=== PATIENT | male | born 1940 | race Hispanic/Latino ===

== ENCOUNTER 2021-05-30 16:38 | Emergency (ER) | payer OTHER ==
--- OUTSIDE RECORDS SUMMARY | 2021-05-30 16:41 | XMS REPORT | Continuity of Care Document ---
:1940 Author Organization [facility] t Address [address] [place] [address] Dr. Herrera [address] [place] [id number] Care Team Providers Name Role Phone Unavailable Unavailable Unavailable Payers Payer Name Policy Type Policy Number Effective Date Expiration Date S [facility] [id number] 2021 (MEDICARE 00:00:00 REPLACEMENT HMO) Problems This patient has no known problems. Allergies, Adverse Reactions, Alerts This patient has no known allergies or adverse reactions. Medications This patient has no known medications. Procedures This patient has no known procedures. Encounters Start End Encounter Admission Attending Care Care Encounter Source Date/Time Date/Time Type Type Clinicians Facility Department ID 2021-01-24 2021-01-24 Outpatient [facility] [id number] [facility] 11:01:00 11:01:00 1029 [facility] Results This patient has no known results.
[2021-05-30] MEDS ORDERED: NA CHLORIDE 0.9% 500 ML ONE (17:32)
[2021-05-30] MEDS ORDERED: CEFTRIAXONE 1000 MG/VIAL ONE (17:32)
[2021-05-30] MEDS ORDERED: NA CHLORIDE 0.9% 1,000 ML ONE (17:32)
[2021-05-30 17:51] LABS: Urine Blood Negative (Negative); Urine Glucose 3+ (Negative); Urine Protein Negative (Negative); Urine Specific Gravity 1.015 (1.005-1.030)
[2021-05-30 17:55] LABS: Absolute Lymphocytes (CBC) 1.1 K/uL (0.7-4.9); Hematocrit 42.3 % (39.6-49.0); Lymphocytes % 17.6 % (15.3-44.8); MPV 9.5 fL (7.6-11.3); Protime INR 1.02; RBC Red Blood Cell Count 4.57 M/uL (4.33-5.43)
[2021-05-30 18:14] LABS: Albumin 3.7 g/dL (3.4-5.0); Bilirubin Direct 0.1 mg/dL (0-0.2); Bilirubin Total 0.5 mg/dL (0.2-1.0); Magnesium 2.2 mg/dL (1.8-2.4); Potassium 3.8 mmol/L (3.5-5.1); Protein, Total 7.8 g/dL (6.4-8.2)
--- NOTE | 2021-05-30 18:29 | RAD REPORT ---
EXAM DESCRIPTION: Emil Single View05/30/2021 5:49 pm CLINICAL HISTORY: cough COMPARISON: 2017 FINDINGS: The lungs appear clear of acute infiltrate. The heart is normal size IMPRESSION: No acute abnormalities displayed
--- NOTE | 2021-05-30 18:56 | ER ---
Nurse's Notes [facility] Name: Ciaran Peters Age: 81 yrs Sex: Male : 1940 Arrival Date: 05/30/2021 Time: 16:40 Bed 26 Private MD: Diagnosis: Weakness;Anorexia;Abnormal weight loss Presentation: 05/30 17:01 Chief complaint: Patient states: Generalized weakness, sore legs, weight loss of 25lbs ww but unsure over what amount of time. Coronavirus screen: Vaccine status: Patient reports receiving the 2nd dose of the covid vaccine. Client denies travel out of the [place] in the last 14 days. Ebola Screen: Patient denies travel to an Ebola-affected area in the 21 days before illness onset. Initial Sepsis Screen: Does the patient meet any 2 criteria? No. Patient's initial sepsis screen is negative. Does the patient have a suspected source of infection? No. Patient's initial sepsis screen is negative. Risk Assessment: Do you want to hurt yourself or someone else? Patient reports no desire to harm self or others. Onset of symptoms is unknown. 17:01 Method Of Arrival: Ambulatory ww 17:01 Acuity: AYDEN 3 ww Triage Assessment: 17:02 General: Appears in no apparent distress. comfortable, Behavior is cooperative. Pain: ww Denies pain. Neuro: Level of Consciousness is awake, alert, obeys commands, Oriented to person, place, time, situation, Speech is normal. Cardiovascular: Capillary refill < 3 seconds. Respiratory: Airway is patent Respiratory effort is even, unlabored, Respiratory pattern is regular, symmetrical. GI: No signs and/or symptoms were reported involving the gastrointestinal system. : No signs and/or symptoms were reported regarding the genitourinary system. Historical: - Allergies: 17:02 No Known Allergies; ww - PMHx: 17:02 Diabetes mellitus; Dementia; ww - PSHx: 17:02 None; ww - Immunization history:: Adult Immunizations up to date. - Social history:: Smoking status: Patient denies any tobacco usage or history of. Screenin:54 Abuse screen: Denies threats or abuse. Denies injuries from another. Nutritional dubois screening: Had unintentional weight loss of 10 pounds or more. Tuberculosis screening: No symptoms or risk factors identified. Fall Risk IV access (20 points). Assessment: 17:54 General: Appears in no apparent distress. Behavior is calm, cooperative. Pain: Denies dubois pain. Cardiovascular: Reports fatigue. GI: Reports intolerance of food. Musculoskeletal: Reports weakness in right arm, left arm, right leg and left leg. Vital Signs: 17:01 BP 129 / 70; Pulse 84; Resp 18; Pulse Ox 100% on R/A; Weight 63.5 kg; Height 5 ft. 9 ww in. (175.26 cm); Pain 0/10; 17:01 Body Mass Index 20.67 (63.50 kg, 175.26 cm) ww ED Course: 16:40 Patient arrived in ED. as 17:02 Triage completed. ww 17:02 Arm band placed on left wrist. Patient placed in an exam room, on a stretcher. ww 17:20 Adria Trujillo MD is Attending Physician. enrrique 17:49 XRAY Chest (1 view) In Process Unspecified. EDMS 17:51 Urine Culture Sent. dubois 17:51 Procalcitonin Sent. dubois 17:51 Blood Culture Adult (2) Sent. dubois 17:51 Lactate Sent. dubois 17:51 Lipase Sent. dubois 17:51 Basic Metabolic Panel Sent. dubois 17:51 CBC with Diff Sent. dubois 17:51 LFT's Sent. dubois 17:53 Magnesium Sent. dubois 17:54 Patient has correct armband on for positive identification. Bed in low position. Side dubois rails up X 1. 17:54 No provider procedures requiring assistance completed. Inserted saline lock: 20 gauge dubois in left antecubital area, using aseptic technique. 18:54 Dennis Florian MD is Referral Physician. enrrique 19:10 IV discontinued, intact, Pressure dressing applied. dubois Administered Medications: 17:50 Drug: NS 0.9% 1000 ml Route: IV; Rate: 125 ml/hr; Site: left antecubital; dubois 17:51 Drug: NS 0.9% 500 ml Route: IV; Rate: bolus; Site: left antecubital; dubois 17:51 Drug: Rocephin (cefTRIAXone) 1 grams Route: IV; Rate: per protocol; Site: left dubois antecubital; Outcome: 18:55 Discharge ordered by . enrrique 18:57 Patient left the ED. iw 19:10 Discharged to home dubois 19:10 Condition: good 19:10 Discharge instructions given to patient. 19:10 Patient left the ED. dubois Signatures: Dispatcher [employer] Adria Parry MD MD cha Martinez, Amelia as Williams, Irene, RN RN iw Wood, Whitney, RN RN ww Au-Stager, Heather, RN RN ha
--- NOTE | 2021-05-30 18:56 | EDPHYS ---
Physician Documentation [facility] Name: Ciaran Peters Age: 81 yrs Sex: Male : 1940 Arrival Date: 05/30/2021 Time: 16:40 Bed 26 Private MD: ED Physician Adria Trujillo HPI: 05/30 18:42 This 81 yrs old Male presents to ER via Ambulatory with complaints of enrrique Weakness, weight loss. 18:42 The patient presents to the emergency department with weakness of the entire body, enrrique generalized weakness. Onset: The symptoms/episode began/occurred 15 day(s) ago. Context: occurred. Historical: - Allergies: 17:02 No Known Allergies; ww - PMHx: 17:02 Diabetes mellitus; Dementia; ww - PSHx: 17:02 None; ww - Immunization history:: Adult Immunizations up to date. - Social history:: Smoking status: Patient denies any tobacco usage or history of. ROS: 18:45 Constitutional: Negative for fever, chills, and weight loss, Eyes: Negative for injury, enrrique pain, redness, and discharge, ENT: Negative for injury, pain, and discharge, Neck: Negative for injury, pain, and swelling, Cardiovascular: Negative for chest pain, palpitations, and edema, Respiratory: Negative for shortness of breath, cough, wheezing, and pleuritic chest pain, Abdomen/GI: Negative for abdominal pain, nausea, vomiting, diarrhea, and constipation, Back: Negative for injury and pain, : Negative for injury, bleeding, discharge, and swelling, MS/Extremity: Negative for injury and deformity, Skin: Negative for injury, rash, and discoloration, Neuro: Negative for headache, weakness, numbness, tingling, and seizure, Psych: Negative for depression, anxiety, suicide ideation, homicidal ideation, and hallucinations, Allergy/Immunology: Negative for hives, rash, and allergies, Endocrine: Negative for neck swelling, polydipsia, polyuria, polyphagia, and marked weight changes, Hematologic/Lymphatic: Negative for swollen nodes, abnormal bleeding, and unusual bruising. Exam: 18:45 Constitutional: This is a well developed, well nourished patient who is awake, alert, enrrique and in no acute distress. Head/Face: Normocephalic, atraumatic. Eyes: Pupils equal round and reactive to light, extra-ocular motions intact. Lids and lashes normal. Conjunctiva and sclera are non-icteric and not injected. Cornea within normal limits. Periorbital areas with no swelling, redness, or edema. ENT: Nares patent. No nasal discharge, no septal abnormalities noted. Tympanic membranes are normal and external auditory canals are clear. Oropharynx with no redness, swelling, or masses, exudates, or evidence of obstruction, uvula midline. Mucous membranes moist. Neck: Trachea midline, no thyromegaly or masses palpated, and no cervical lymphadenopathy. Supple, full range of motion without nuchal rigidity, or vertebral point tenderness. No Meningismus. Chest/axilla: Normal chest wall appearance and motion. Nontender with no deformity. No lesions are appreciated. Cardiovascular: Regular rate and rhythm with a normal S1 and S2. No gallops, murmurs, or rubs. Normal PMI, no JVD. No pulse deficits. Respiratory: Lungs have equal breath sounds bilaterally, clear to auscultation and percussion. No rales, rhonchi or wheezes noted. No increased work of breathing, no retractions or nasal flaring. Abdomen/GI: Soft, non-tender, with normal bowel sounds. No distension or tympany. No guarding or rebound. No evidence of tenderness throughout. Back: No spinal tenderness. No costovertebral tenderness. Full range of motion. Male : Normal genitalia with no discharge or lesions. Skin: Warm, dry with normal turgor. Normal color with no rashes, no lesions, and no evidence of cellulitis. MS/ Extremity: Pulses equal, no cyanosis. Neurovascular intact. Full, normal range of motion. Neuro: Awake and alert, GCS 15, oriented to person, place, time, and situation. Cranial nerves II-XII grossly intact. Motor strength 5/5 in all extremities. Sensory grossly intact. Cerebellar exam normal. Normal gait. Psych: Awake, alert, with orientation to person, place and time. Behavior, mood, and affect are within normal limits. 18:53 Abdomen/GI: Inspection: abdomen appears normal, Bowel sounds: normal, Palpation: [facility] abdomen is soft and non-tender, Liver: no appreciated palpable abnormalities, Hernia: not appreciated. 19:00 ECG was reviewed by the Attending Physician. [facility] Vital Signs: 17:01 BP 129 / 70; Pulse 84; Resp 18; Pulse Ox 100% on R/A; Weight 63.5 kg; Height 5 ft. 9 ww in. (175.26 cm); Pain 0/10; 17:01 Body Mass Index 20.67 (63.50 kg, 175.26 cm) MDM: 17:20 Patient medically screened. enrrique 18:59 Data reviewed: vital signs, nurses notes, lab test result(s), EKG, radiologic studies, enrrique plain films. Data interpreted: laboratory monitor: not applicable for this patient encounter. rate is 84 beats/min, rhythm is regular, Pulse oximetry: on room air is 100 %. Test interpretation: by ED physician or midlevel provider: ECG, plain radiologic studies. Counseling: I had a detailed discussion with the patient and/or guardian regarding: the historical points, exam findings, and any diagnostic results supporting the discharge/admit diagnosis, lab results, radiology results, the need for outpatient follow up, for definitive care, a family practitioner, a head of transport logistics. 05/30 17:25 Order name: Basic Metabolic Panel [facility] 05/30 17:25 Order name: CBC with Diff [facility] 05/30 17:25 Order name: LFT's [facility] 05/30 17:25 Order name: Magnesium; Complete Time: 18:33 [facility] 05/30 17:25 Order name: NT PRO-BNP; Complete Time: 18:33 [facility] 05/30 17:25 Order name: PT-INR; Complete Time: 18:33 [facility] 05/30 17:25 Order name: Troponin HS; Complete Time: 18:33 [facility] 05/30 17:25 Order name: Lipase; Complete Time: 18:33 [facility] 05/30 17:25 Order name: Lactate; Complete Time: 18:33 [facility] 05/30 17:25 Order name: Blood Culture Adult (2) [facility] 05/30 17:25 Order name: Procalcitonin; Complete Time: 18:33 [facility] 05/30 17:25 Order name: Urine Culture [facility] 05/30 17:25 Order name: Basic Metabolic Panel; Complete Time: 18:33 EDOR 05/30 17:26 Order name: CBC with Automated Diff; Complete Time: 18:11 EDOR 05/30 17:25 Order name: XRAY Chest (1 view); Complete Time: 18:33 [facility] 05/30 17:25 Order name: EKG; Complete Time: 17:26 enrrique 05/30 17:25 Order name: Cardiac monitoring; Complete Time: 17:51 enrrique 05/30 17:25 Order name: EKG - Nurse/Tech; Complete Time: 18:28 enrrique 05/30 17:25 Order name: IV Saline Lock; Complete Time: 17:51 05/30 17:25 Order name: Labs collected and sent; Complete Time: 17:52 enrrique 05/30 17:25 Order name: O2 Per Protocol; Complete Time: 17:52 enrrique 05/30 17:25 Order name: O2 Sat Monitoring; Complete Time: 17:52 enrrique 05/30 17:25 Order name: Urine Dipstick-Ancillary (obtain specimen); Complete Time: 17:51 enrrique 05/30 17:26 Order name: Liver (Hepatic) Function; Complete Time: 18:33 EDMS 05/30 17:51 Order name: Urine Dipstick-Ancillary; Complete Time: 18:33 EDMS EC:00 Rate is 63 beats/min. Rhythm is regular. QRS [place] is Normal. [place] interval is normal. QRS enrrique interval is normal. QT interval is normal. No Q waves. T waves are Normal. No ST changes noted. Clinical impression: Normal ECG and No evidence of ischemia. Interpreted by me. Reviewed by me. Administered Medications: 17:50 Drug: NS 0.9% 1000 ml Route: IV; Rate: 125 ml/hr; Site: left antecubital; 17:51 Drug: NS 0.9% 500 ml Route: IV; Rate: bolus; Site: left antecubital; 17:51 Drug: Rocephin (cefTRIAXone) 1 grams Route: IV; Rate: per protocol; Site: left antecubital; Disposition Summary: 05/30/21 18:55 Discharge Ordered Location: Home enrrique Problem: new enrrique Symptoms: have improved enrrique Condition: Stable enrrique Diagnosis - Weakness enrrique - Anorexia enrrique - Abnormal weight loss enrrique Followup: enrrique - With: Private Physician - When: 2 - 3 days - Reason: Recheck today's complaints, Continuance of care, Re-evaluation by your physician Followup: enrrique - With: Dennis Florian MD - When: 2 - 3 days - Reason: Recheck today's complaints, Re-evaluation by your physician Discharge Instructions: - Discharge Summary Sheet enrrique - Weakness enrrique - Fatigue enrrique - Weakness, [id number] enrrique - Type 2 Diabetes Mellitus, Diagnosis, Adult, [id number] enrrique - Deconditioning enrrique Forms: - Medication Reconciliation Form enrrique - Thank You Letter enrrique - Antibiotic Education enrrique - Prescription Opioid Use enrrique Signatures: Dispatcher [employer] EDAdria Culp MD MD cha Attema, Lee, RED HAT LINUX ENGINEER-C [employer] HAT LINUX ENGINEER-Cla1 Xiomara Campbell, RN RN ww Cristina Mcintyre RN RN dubois
[2021-05-30 19:25] VITALS: BP 129/70; O2SAT 100
== END 2021-05-30 19:10 | disposition home or self-care (01) ==
LOC: ER 16:38
DX: R63.0 Anorexia (principal); R63.4 Abnormal weight loss; E11.9 Type 2 diabetes mellitus without complications; F03.90 Unspecified dementia, unspecified severity, without behavioral disturbance, psychotic disturbance, mood disturbance, and anxiety
CPT/HCPCS: 93005; 87040 ×2; 87088; 85025; 87086; 80048; 36415; 83735; 85610; 80076; 83605; 81003; 84484; 83690; 84145; 83880; 71045; 96374; 99284; J7040; J7030

== ENCOUNTER 2021-10-28 12:44 | Emergency (ER) | payer OTHER ==
--- OUTSIDE RECORDS SUMMARY | 2021-10-28 12:46 | XMS REPORT | Continuity of Care Document ---
:1940 Author Organization [facility] t Address [address] [place] [address] Care Team Providers Name Role Phone Gino Walton Attending Clinician Unavailable Bryn Bragg Attending Clinician Unavailable Payers Payer Name Policy Type Policy Number Effective Date Expiration Date S [facility] [id number] 2021 (MEDICARE 00:00:00 REPLACEMENT HMO) Problems This patient has no known problems. Allergies, Adverse Reactions, Alerts This patient has no known allergies or adverse reactions. Medications This patient has no known medications. Procedures This patient has no known procedures. Encounters Start End Encounter Admission Attending Care Care Encounter Source Date/Time Date/Time Type Type Clinicians Facility Department ID 2021-08-20 Outpatient Walton, [facility] [id number] Common 09:21:03 Avnee [facility] 2021-08-14 Outpatient Walton, [facility] [id number] Common 12:47:01 Avnee [facility] 2021-07-24 Outpatient Walton, [facility] [id number] Common 09:27:03 Avnee [facility] 2021-07-23 Outpatient Anton, [facility] [id number] Common 11:07:05 Avnee [facility] 2021-07-17 Outpatient RITA Bragg [facility] [id number] Common 08:39:06 [facility] 2021-01-24 2021-01-24 Outpatient DMG DMG [id number] [facility] 11:01:00 11:01:00 1029 [facility] Results This patient has no known results.
--- NOTE | 2021-10-28 14:09 | RAD REPORT ---
EXAM DESCRIPTION: RAD - Chest Single View - 10/28/2021 1:56 pm CLINICAL HISTORY: sadf Chest pain. COMPARISON: Chest Single View dated 05/30/2021; Chest Pa And Lat (2 Views) dated 04/19/2017; Chest Pa A nd Lat (2 Views) dated 01/25/2017 FINDINGS: Portable technique limits examination quality. The lungs are grossly clear. The heart is normal in size. No displaced fractures. IMPRESSION: No acute intrathoracic process suspected.
[2021-10-28 15:35] VITALS: BP 136/86; TEMP 97; O2SAT 99
--- NOTE | 2021-10-29 10:13 | EDPHYS ---
Physician Documentation [facility] Name: Ciaran Peters Age: 81 yrs Sex: Male : 1940 Arrival Date: 10/28/2021 Time: 12:49 Bed DIS2 Private MD: ED Physician Adria Trujillo HPI: 10/28 14:23 This 81 yrs old Male presents to ER via Ambulatory with complaints of General jl9 Weakness, bodyaches. 14:23 Onset: The symptoms/episode began/occurred 1 month(s) ago. Associated signs and jl9 symptoms: Pertinent positives: Weakness., Pertinent negatives:. Modifying factors: The patient symptoms are alleviated by nothing, the patient symptoms are aggravated by nothing. The patient has experienced a previous episode, Patient has upcoming hematology appointment. . The patient has been recently seen by a physician:. Historical: - Allergies: 13:02 No Known Allergies; eh3 - Home Meds: 13:02 Flonase 50 mcg/actuation Nasal spsn 1 spray once daily [Active]; eh3 - PMHx: 13:02 Dementia; diabetes mellitus; eh3 - PSHx: 13:02 None; eh3 - Immunization history:: Adult Immunizations up to date. - Social history:: Smoking status: Patient denies any tobacco usage or history of. Patient/guardian denies using alcohol. ROS: 14:24 Eyes: Negative for injury, pain, redness, and discharge, ENT: Negative for injury, jl9 pain, and discharge, Neck: Negative for injury, pain, and swelling, Cardiovascular: Negative for chest pain, palpitations, and edema, Respiratory: Negative for shortness of breath, cough, wheezing, and pleuritic chest pain, Abdomen/GI: Negative for abdominal pain, nausea, vomiting, diarrhea, and constipation, Back: Negative for injury and pain, MS/Extremity: Negative for injury and deformity, Skin: Negative for injury, rash, and discoloration, Neuro: Negative for headache, weakness, numbness, tingling, and seizure, Psych: Negative for depression, anxiety, suicide ideation, homicidal ideation, and hallucinations, Allergy/Immunology: Negative for hives, rash, and allergies, Endocrine: Negative for neck swelling, polydipsia, polyuria, polyphagia, and marked weight changes, Hematologic/Lymphatic: Negative for swollen nodes, abnormal bleeding, and unusual bruising. 14:24 Constitutional: Positive for malaise. Exam: 14:25 Constitutional: This is a well developed, well nourished patient who is awake, alert, jl9 and in no acute distress. Head/Face: Normocephalic, atraumatic. Eyes: Pupils equal round and reactive to light, extra-ocular motions intact. Lids and lashes normal. Conjunctiva and sclera are non-icteric and not injected. Cornea within normal limits. Periorbital areas with no swelling, redness, or edema. ENT: Mucous membranes moist. Neck: Trachea midline, no thyromegaly or masses palpated, and no cervical lymphadenopathy. Supple, full range of motion without nuchal rigidity, or vertebral point tenderness. No Meningismus. Chest/axilla: Normal chest wall appearance and motion. Nontender with no deformity. No lesions are appreciated. Cardiovascular: Regular rate and rhythm with a normal S1 and S2. No gallops, murmurs, or rubs. Normal PMI, no JVD. No pulse deficits. Abdomen/GI: Soft, non-tender, with normal bowel sounds. No distension or tympany. No guarding or rebound. No evidence of tenderness throughout. Back: No spinal tenderness. No costovertebral tenderness. Full range of motion. Skin: Warm, dry with normal turgor. Normal color with no rashes, no lesions, and no evidence of cellulitis. MS/ Extremity: Pulses equal, no cyanosis. Neurovascular intact. Full, normal range of motion. Neuro: Awake and alert, GCS 15, oriented to person, place, time, and situation. Cranial nerves II-XII grossly intact. Motor strength 5/5 in all extremities. Sensory grossly intact. Cerebellar exam normal. Normal gait. Psych: Awake, alert, with orientation to person, place and time. Behavior, mood, and affect are within normal limits. Vital Signs: 12:56 BP 136 / 86 RA Sitting (auto/reg); Pulse 76; Resp 18; Temp 97.0(TE); Pulse Ox 99% on eh3 R/A; Weight 65.77 kg; Height 5 ft. 9 in. (175.26 cm); Pain 0/10; 12:56 Body Mass Index 21.41 (65.77 kg, 175.26 cm) 3 MDM: 13:16 Patient medically screened. jl9 14:28 Data reviewed: vital signs, nurses notes. jl9 14:28 Special discussion: Patient declines any blood work and states that while in the ED, he jl9 received a call from his PCP and he has a registration representative appointment. Patient states he has been seeking answers for his generalized weakness. He would like to be discharged and follow up with hematology. . 10/28 13:30 Order name: XRAY Chest (1 view); Complete Time: 14:27 jl9 10/28 13:30 Order name: COVID,FLU,RSV CPL (Document "Date of Onset" if Symptomatic) jl9 10/28 13:30 Order name: Urine Dipstick-Ancillary (obtain specimen) jl9 10/28 13:31 Order name: IV Saline Lock - Large Bore jl9 Administered Medications: No medications were administered Disposition Summary: 10/28/21 14:26 Discharge Ordered Location: Home jl9 Problem: an ongoing problem jl9 Symptoms: are unchanged jl9 Condition: Stable jl9 Diagnosis - Muscle weakness (generalized) jl9 Followup: jl9 - With: Private Physician - When: 1 - 2 days - Reason: Recheck today's complaints, Continuance of care, Re-evaluation by your physician Discharge Instructions: - Discharge Summary Sheet jl9 - Weakness, [id number] jl9 Forms: - Medication Reconciliation Form jl9 - Thank You Letter jl9 - Antibiotic Education jl9 - Prescription Opioid Use jl9 Signatures: Dispatcher [employer] Yamini Lara 3 Morgan Santiago jl9
--- NOTE | 2021-10-29 10:13 | ER ---
Nurse's Notes [facility] Name: Ciaran Peters Age: 81 yrs Sex: Male : 1940 Arrival Date: 10/28/2021 Time: 12:49 Bed DIS2 Private MD: Diagnosis: Muscle weakness (generalized) Presentation: 10/28 12:56 Chief complaint: Patient states: generalized weakness, vomiting, unintentional weight eh3 loss. Coronavirus screen: Vaccine status: Patient reports receiving the 2nd dose of the covid vaccine. Ebola Screen: No symptoms or risks identified at this time. Initial Sepsis Screen: Does the patient meet any 2 criteria? No. Patient's initial sepsis screen is negative. Does the patient have a suspected source of infection? No. Patient's initial sepsis screen is negative. Risk Assessment: Do you want to hurt yourself or someone else? Patient reports no desire to harm self or others. Onset of symptoms was October 28, 2021. 12:56 Method Of Arrival: Ambulatory 3 12:56 Acuity: AYDEN 3 eh3 Triage Assessment: 13:02 General: Appears in no apparent distress. comfortable, Behavior is calm, cooperative, eh3 appropriate for age. Pain: Denies pain. Neuro: Level of Consciousness is awake, alert, obeys commands, Oriented to person, place, time, situation. Cardiovascular: Capillary refill < 3 seconds Patient's skin is warm and dry. Respiratory: Airway is patent Respiratory effort is even, unlabored. 13:02 GI: Reports vomiting, since this morning. eh3 Historical: - Allergies: 13:02 No Known Allergies; eh3 - Home Meds: 13:02 Flonase 50 mcg/actuation Nasal spsn 1 spray once daily [Active]; eh3 - PMHx: 13:02 Dementia; diabetes mellitus; eh3 - PSHx: 13:02 None; eh3 - Immunization history:: Adult Immunizations up to date. - Social history:: Smoking status: Patient denies any tobacco usage or history of. Patient/guardian denies using alcohol. Screenin:24 Abuse screen: Denies threats or abuse. Denies injuries from another. Nutritional iw screening: No deficits noted. Tuberculosis screening: No symptoms or risk factors identified. Fall Risk No IV (0 pts). Assessment: 14:00 Reassessment: pt refusing lab draw at this time, COMPUTER APPLICATIONS DEVELOPER speaking with pt. 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 iw Vital Signs: 12:56 BP 136 / 86 RA Sitting (auto/reg); Pulse 76; Resp 18; Temp 97.0(TE); Pulse Ox 99% on 3 R/A; Weight 65.77 kg; Height 5 ft. 9 in. (175.26 cm); Pain 0/10; 12:56 Body Mass Index 21.41 (65.77 kg, 175.26 cm) 3 ED Course: 12:49 Patient arrived in ED. am2 13:02 Triage completed. 3 13:02 Arm band placed on left wrist. 3 13:12 Morgan Santiago is PHCP. jl9 13:12 Adria Trujillo MD is Attending Physician. jl9 13:58 XRAY Chest (1 view) In Process Unspecified. EDNH 14:01 Cristina Mcintyre, RN is Primary Nurse. 14:25 Leslee Lawson, RN is Primary Nurse. iw 14:33 No provider procedures requiring assistance completed. Patient did not have IV access iw during this emergency room visit. 14:34 Patient has correct armband on for positive identification. iw Administered Medications: No medications were administered Medication: 14:34 VIS not applicable for this client. iw Outcome: 14:26 Discharge ordered by . jl9 14:33 Discharged to home ambulatory. iw 14:33 Condition: good 14:33 Discharge instructions given to patient, Instructed on discharge instructions, follow up and referral plans. Demonstrated understanding of instructions, follow-up care. 14:34 Patient left the ED. iw Signatures: Dispatcher [employer] EDMS Leslee Lawson, RN RN Maribel Pena 2 Cristina Mcintyre RN RN ha Hall, Erin [facility] Morgan Santiago jl9
== END 2021-10-28 14:34 | disposition home or self-care (01) ==
LOC: ER 12:44
DX: M62.81 Muscle weakness (generalized) (principal); E11.8 Type 2 diabetes mellitus with unspecified complications; F03.90 Unspecified dementia, unspecified severity, without behavioral disturbance, psychotic disturbance, mood disturbance, and anxiety
CPT/HCPCS: 71045; 99283